=== PATIENT | female | born 1965 | race Caucasian/White ===

== ENCOUNTER 2019-09-04 01:03 | Emergency (ER) | payer OTHER ==
[~2019-09-04] VITALS: Ht 154.9 cm; Wt 72.6 kg
[~2019-09-04 01:03] MED LIST: AMOXICILLIN875 MG PO; MEDROLDOSEPACK PO; VENTOLIN HFA 1818 GM INH
[2019-09-04 01:36] LABS: ABSOLUTE BASOPHILS 0.1 thou/uL (0.0-0.2); ABSOLUTE EOSINOPHILS 0.1 thou/uL (0.0-0.7); ABSOLUTE LYMPHOCYTES 2.4 thou/uL (0.8-5.3); ABSOLUTE MONOCYTES 0.3 thou/uL (0.0-1.2); ABSOLUTE NEUTROPHILS 3.9 thou/uL (1.6-8.1); BASOPHILS 0.8 %; EOSINOPHILS 2.2 %; HEMATOCRIT 41.6 % (37.0-47.0); HEMOGLOBIN 14.1 gm/dL (12.0-15.0); LYMPHOCYTES 35.7 %; MCV 88.2 fL (80.0-100.0); MONOCYTES 4.8 %; MPV 7.8 fl. (7.2-11.1); NUCLEATED RBCS 0 /100WBC; PLATELET COUNT* 219 thou/uL (150-400); POLYS 56.5 %; RBC 4.71 mil/uL (4.20-5.00); RDW-CV 15.6 % (10.5-14.5); WBC 6.9 thou/uL (4.0-11.0)
[2019-09-04 01:39] LABS: CALCIUM 7.9 mg/dL (8.5-10.1); CREATININE 0.6 mg/dL (0.6-1.3); POTASSIUM 3.8 mmol/L (3.5-5.1)
[2019-09-04 01:43] LABS: ALBUMIN 3.8 g/dL (3.4-5.0); TOTAL BILIRUBIN 0.9 mg/dL (<0.1-1.0); TOTAL PROTEIN 8.9 g/dL (6.4-8.2)
[2019-09-04 01:44] LABS: URINE BILIRUBIN NEGATIVE (Negative); URINE BLOOD TRACE (Negative); URINE CLARITY CLEAR; URINE COLOR YELLOW; URINE GLUCOSE-RANDOM NEGATIVE (Negative); URINE KETONES NEGATIVE (Negative); URINE LEUKOCYTES-REFLEX NEGATIVE (Negative); URINE NITRITE-REFLEX NEGATIVE (Negative); URINE PROTEIN 1+ (Negative); URINE SPECIFIC GRAVITY <= 1.005 (1.005-1.030); URINE UROBILINOGEN 0.2 E.U./dl (0.2-1.0)
[2019-09-04 01:47] LABS: ALCOHOL 363 mg/dL (<10); SALICYLATE < 2.8 mg/dL (2.8-20.0)
[2019-09-04 01:50] LABS: AMP/METHAMP Negative (Negative); BARBITURATES Negative (Negative); BENZODIAZEPINES Negative (Negative); COCAINE Negative (Negative); METHADONE Negative (Negative); OPIATES Negative (Negative); PCP Negative (Negative); THC Negative (Negative)
[2019-09-04 01:56] LABS: ACETAMINOPHEN < 2 ug/mL (10-30)
[2019-09-04 13:40] VITALS: BP 167/93
== END 2019-09-04 13:40 ==
LOC: M.ERS 01:03
PROVIDERS: Emergency Medicine
DX: R45.851 Suicidal ideations (principal); F10.129 Alcohol abuse with intoxication, unspecified; R45.850 Homicidal ideations; I10 Essential (primary) hypertension; E11.9 Type 2 diabetes mellitus without complications; Z90.710 Acquired absence of both cervix and uterus; Z98.890 Other specified postprocedural states; Z88.0 Allergy status to penicillin